=== PATIENT | female | born 1935 | race African-American/Black ===

== ENCOUNTER 2020-07-25 13:56 | Observation (INO) ==
[2020-07-25 14:31] LABS: Basophils % 0.4 % (0.0-0.8); Eosinophils % 0.4 % (0.00-10.9); Hematocrit 35.4 VOL% (35.7-47.0); Hemoglobin 11.4 GM/DL (12.0-16.0); Immature Granulocytes % 0.2 %; Immature Granulocytes Absolute 0.02 #; Lymphocytes # 1.4 10*3/uL (1.4-4.0); Lymphocytes % 17.9 % (21.3-54.2); Mean Corpuscular HGB Conc 32.2 GM/DL (32-36); Mean Corpuscular Volume 90.1 FL (87-102); Monocytes % 5.9 % (1.7-12.7); Neutrophils % 75.2 % (38.7-73.9); Platelet Count 419 T/CUMM (130-400); Red Blood Count 3.93 MC/CUMM (3.8-5.5); Red Cell Distribution Width 14.2 % (9.3-17.3)
[2020-07-25 14:49] LABS: Albumin 3.5 G/DL (3.4-5.0); Bilirubin,Total 0.4 MG/DL (0.2-1.0); Calcium 9.5 MG/DL (8.5-10.1); Osmolality,Calculated 278.5 MOS/KG (273-304); Total Protein 7.6 G/DL (6.4-8.2)
[2020-07-25] MEDS ORDERED: ONDANSETRON 4 MG/2 ML VIAL IV PRN (15:15)
[2020-07-25] MEDS ORDERED: ACETAMINOPHEN 325 MG TABLET PO PRN (15:15)
[2020-07-25] MEDS ORDERED: MAGNESIUM SULF RIDER 2 GM/50 ML PREMIX IV ONE ×2 (18:08→20:00)
[2020-07-25] MEDS ORDERED: traZODone 50 MG TABLET PO PRN (18:09)
[2020-07-25] MEDS: DOCUSATE SODIUM 100 MG CAPSULE PO SCH (20:30)
[2020-07-25] MEDS ORDERED: INSULIN GLARGINE 100 UNIT/ML SUBCUT SCH (21:00)
[2020-07-26] MEDS ORDERED: metFORMIN 500 MG TABLET PO SCH (08:00)
[2020-07-26] MEDS ORDERED: POTASSIUM CHLORIDE 20 MEQ TABLET PO SCH (09:00)
[2020-07-26] MEDS ORDERED: sitaGLIPtin 100 MG TABLET PO SCH (09:00)
[2020-07-26] MEDS ORDERED: PANTOPRAZOLE 40 MG TABLET PO SCH (09:00)
[2020-07-26] MEDS ORDERED: hydroCHLOROthiazide 25 MG TABLET PO SCH (09:00)
[2020-07-26] MEDS ORDERED: ASPIRIN EC 81 MG TABLET PO SCH (09:00)
[2020-07-26] MEDS ORDERED: amLODIPine 5 MG TABLET PO SCH (09:00)
[2020-07-26] MEDS: DOCUSATE SODIUM 100 MG CAPSULE PO SCH (09:21)
[2020-07-26 11:57] VITALS: BP 110/51
== END 2020-07-26 16:13 | disposition home health service (06) ==
LOC: N.ED 13:56 → N.EDINP 13:56 → N.TELEN 17:22
PROVIDERS: ADMIT Internal Medicine; ATTEND Internal Medicine

== ENCOUNTER 2021-02-11 10:02 | Inpatient (IN) ==
[2021-02-11 13:16] LABS: Basophils % 0.2 % (0.0-0.8); Eosinophils % 0.7 % (0.00-10.9); Hematocrit 31.9 VOL% (35.7-47.0); Immature Granulocytes % 0.3 %; Immature Granulocytes Absolute 0.02 #; Lymphocytes # 1.2 10*3/uL (1.4-4.0); Mean Corpuscular HGB Conc 31.3 GM/DL (32-36); Mean Corpuscular Volume 86.9 FL (87-102); Mean Platelet Volume 10.5 FL (9.6-12.0); Monocytes % 8.9 % (1.7-12.7); Neutrophils % 69.9 % (38.7-73.9); Platelet Count 512 T/CUMM (130-400); Red Blood Count 3.67 MC/CUMM (3.8-5.5); Red Cell Distribution Width 14.6 % (9.3-17.3); White Blood Count 6.1 T/CUMM (4-12)
[2021-02-11 13:40] LABS: Alanine Aminotransferase 23 U/L (13-56); Albumin 2.5 G/DL (3.4-5.0); Alkaline Phosphatase 63 U/L (45-117); Aspartate Amino Transferase 37 U/L (0-37); Bilirubin,Total < 0.39 MG/DL (0.20-1.00); Blood Urea Nitrogen 12 MG/DL (7-18); Calcium 9.4 MG/DL (8.5-10.1); Carbon Dioxide 30 MMOL/L (21-32); Estimated Glom Filtration Rate 110 ML/MIN; Glucose 98 MG/DL (74-106); Potassium 3.3 MMOL/L (3.5-5.1); Sodium 136 MMOL/L (136-145); Total Protein 7.2 G/DL (6.4-8.2)
[2021-02-11] MEDS ORDERED: GLUCAGON 1 MG VIAL IM PRN (14:15)
[2021-02-11] MEDS ORDERED: ONDANSETRON 4 MG/2 ML VIAL IV PRN (14:15)
[2021-02-11] MEDS ORDERED: DEXTROSE 50% 25 GM/50 ML SYRINGE IV PRN (14:32)
[2021-02-11] MEDS: CLINDAMYCIN INJ 600 MG/50 ML PREMIX IV SCH ×2 (15:03→23:58)
[2021-02-11] MEDS: INSULIN LISPRO 100 UNIT/ML SUBCUT SCH ×2 (17:19→23:50)
[2021-02-11] MEDS: ACETAMINOPHEN 325 MG TABLET PO PRN (21:40)
[2021-02-12] MEDS: INSULIN LISPRO 100 UNIT/ML SUBCUT SCH ×4 (07:50→20:47)
[2021-02-12 08:39] LABS: Basophils % 0.2 % (0.0-0.8); Eosinophils % 0.5 % (0.00-10.9); Hematocrit 30.8 VOL% (35.7-47.0); Hemoglobin 9.7 GM/DL (12.0-16.0); Immature Granulocytes % 0.3 %; Immature Granulocytes Absolute 0.02 #; Lymphocytes # 1.2 10*3/uL (1.4-4.0); Mean Corpuscular HGB Conc 31.5 GM/DL (32-36); Mean Corpuscular Volume 86.8 FL (87-102); Mean Platelet Volume 10.6 FL (9.6-12.0); Monocytes % 8.8 % (1.7-12.7); Neutrophils % 70.2 % (38.7-73.9); Platelet Count 483 T/CUMM (130-400); Red Blood Count 3.55 MC/CUMM (3.8-5.5); Red Cell Distribution Width 14.6 % (9.3-17.3)
[2021-02-12] MEDS: CLINDAMYCIN INJ 600 MG/50 ML PREMIX IV SCH ×3 (08:45→23:55)
[2021-02-12] MEDS: PANTOPRAZOLE 40 MG TABLET PO SCH (08:45)
[2021-02-12 09:04] LABS: Albumin 2.4 G/DL (3.4-5.0); Bilirubin,Total 0.7 MG/DL (0.20-1.00); Calcium 9.3 MG/DL (8.5-10.1); Osmolality,Calculated 270.8 MOS/KG (273-304); Potassium 3.7 MMOL/L (3.5-5.1)
[2021-02-12 19:45] LABS: Amorphous Crystals,Urine Occasional /HPF (Few); Bilirubin,Urine Negative (Negative); Blood, Urine Negative (Negative); Glucose,Urine (UA) Negative (Negative); Ketones,Urine Negative (Negative); Mucus,Urine Occasional /LPF (Occasional); Nitrite,Urine Negative (Negative); Protein,Urine Negative; Squamous Epithelial Cell,Urine Occasional /HPF (0-10); Urine Appearance CLEAR (Clear); Urine Color Yellow (Yellow); Urine Specific Gravity 1.016 (1.001-1.035)
[2021-02-12] MEDS: POTASSIUM CHLORIDE 10 MEQ TABLET PO SCH (20:50)
[2021-02-12] MEDS: BACLOFEN 10 MG TABLET PO SCH (20:50)
[2021-02-13] MEDS: traZODone 50 MG TABLET PO PRN (00:04)
[2021-02-13] MEDS: CLINDAMYCIN INJ 600 MG/50 ML PREMIX IV SCH ×3 (06:20→22:25)
[2021-02-13 06:30] LABS: Basophils % 0.1 % (0.0-0.8); Eosinophils # 0.1 10*3/uL (0.0-0.87); Eosinophils % 0.7 % (0.00-10.9); Hematocrit 29.7 VOL% (35.7-47.0); Hemoglobin 9.4 GM/DL (12.0-16.0); Immature Granulocytes % 0.7 %; Immature Granulocytes Absolute 0.05 #; Lymphocytes # 1.9 10*3/uL (1.4-4.0); Lymphocytes % 25.9 % (21.3-54.2); Mean Corpuscular HGB Conc 31.6 GM/DL (32-36); Mean Corpuscular Volume 85.3 FL (87-102); Mean Platelet Volume 10.5 FL (9.6-12.0); Monocytes % 11.1 % (1.7-12.7); Neutrophils % 61.5 % (38.7-73.9); Platelet Count 480 T/CUMM (130-400); Red Blood Count 3.48 MC/CUMM (3.8-5.5); Red Cell Distribution Width 14.6 % (9.3-17.3); White Blood Count 7.3 T/CUMM (4-12)
[2021-02-13 07:00] LABS: Calcium 8.7 MG/DL (8.5-10.1); Osmolality,Calculated 267.1 MOS/KG (273-304); Potassium 3.5 MMOL/L (3.5-5.1)
[2021-02-13] MEDS: INSULIN LISPRO 100 UNIT/ML SUBCUT SCH ×4 (07:41→21:01)
[2021-02-13] MEDS ORDERED: LIDOCAINE 1% 50 ML VIAL ONE (10:17)
[2021-02-13] MEDS ORDERED: fentaNYL 100 MCG/2 ML VIAL ONE (10:47)
[2021-02-13] MEDS ORDERED: TUBERCULIN SKIN TEST 0.1 ML SYRINGE INTRADERM ONE (11:00)
[2021-02-13] MEDS ORDERED: LACTATED RINGERS 1,000 ML IV SCH (11:00)
[2021-02-13] MEDS: hydroCHLOROthiazide 25 MG TABLET PO SCH (11:00)
[2021-02-13] MEDS: ASPIRIN EC 81 MG TABLET PO SCH (11:00)
[2021-02-13] MEDS: BACLOFEN 10 MG TABLET PO SCH ×3 (11:01→21:01)
[2021-02-13] MEDS: PANTOPRAZOLE 40 MG TABLET PO SCH (11:01)
[2021-02-13] MEDS: amLODIPine 10 MG TABLET PO SCH (11:01)
[2021-02-13] MEDS: POTASSIUM CHLORIDE 10 MEQ TABLET PO SCH ×2 (11:01→21:01)
[2021-02-13] MEDS ORDERED: LIDOCAINE 2% 5 ML VIAL ONE (11:08)
[2021-02-13] MEDS ORDERED: PHENYLEPHRINE 1 MG/10 ML SYRINGE IV ONE (11:08)
[2021-02-13] MEDS ORDERED: ETOMIDATE 40 MG/20 ML VIAL IV ONE (11:08)
[2021-02-13] MEDS ORDERED: ONDANSETRON 4 MG/2 ML VIAL ONE (11:08)
[2021-02-13] MEDS ORDERED: propofoL 200 MG/20 ML VIAL IV ONE (11:08)
[2021-02-13] MEDS ORDERED: SEVOFLURANE 1 UNIT/15 MINUTE INH ONE (11:08)
[2021-02-13] MEDS ORDERED: DEXTROSE 50% 25 GM/50 ML VIAL IV PRN (12:16)
[2021-02-13] MEDS ORDERED: GLUCAGON 1 MG VIAL IM PRN (12:16)
[2021-02-13] MEDS: SODIUM CHLORIDE 0.9% 1,000 ML IV SCH ×3 (17:17→23:01)
[2021-02-13] MEDS ORDERED: SODIUM CHLORIDE 0.9% 1,000 ML IV SCH (21:00)
[2021-02-14 05:55] LABS: Basophils % 0.1 % (0.0-0.8); Hemoglobin 8.8 GM/DL (12.0-16.0); Immature Granulocytes % 0.5 %; Immature Granulocytes Absolute 0.08 #; Lymphocytes # 0.7 10*3/uL (1.4-4.0); Lymphocytes % 4.8 % (21.3-54.2); Mean Corpuscular HGB Conc 31.4 GM/DL (32-36); Mean Corpuscular Volume 86.7 FL (87-102); Mean Platelet Volume 10.3 FL (9.6-12.0); Monocytes % 3.8 % (1.7-12.7); Neutrophils % 90.8 % (38.7-73.9); Platelet Count 402 T/CUMM (130-400); Red Blood Count 3.23 MC/CUMM (3.8-5.5); Red Cell Distribution Width 14.6 % (9.3-17.3); White Blood Count 14.7 T/CUMM (4-12)
[2021-02-14 06:17] LABS: Calcium 8.6 MG/DL (8.5-10.1); Osmolality,Calculated 270.8 MOS/KG (273-304); Potassium 3.2 MMOL/L (3.5-5.1)
[2021-02-14] MEDS: CLINDAMYCIN INJ 600 MG/50 ML PREMIX IV SCH ×3 (06:18→22:39)
[2021-02-14 06:45] LABS: Band Neutrophils 3 % (0-10); Lymphocytes 1 % (20-55); Platelet Estimate Increased; Segmented Neutrophils 94 % (50-85); Total Cells Counted 100
[2021-02-14] MEDS: INSULIN LISPRO 100 UNIT/ML SUBCUT SCH ×4 (08:33→20:34)
[2021-02-14] MEDS: amLODIPine 10 MG TABLET PO SCH (09:08)
[2021-02-14] MEDS: ASPIRIN EC 81 MG TABLET PO SCH (09:08)
[2021-02-14] MEDS: PANTOPRAZOLE 40 MG TABLET PO SCH (09:08)
[2021-02-14] MEDS: POTASSIUM CHLORIDE 10 MEQ TABLET PO SCH ×2 (09:08→20:36)
[2021-02-14] MEDS: BACLOFEN 10 MG TABLET PO SCH ×3 (09:08→20:36)
[2021-02-14] MEDS: hydroCHLOROthiazide 25 MG TABLET PO SCH (09:08)
[2021-02-14] MEDS: SODIUM CHLORIDE 0.9% 1,000 ML IV SCH ×2 (09:09→20:44)
[2021-02-14] MEDS ORDERED: POTASSIUM CHLORIDE 20 MEQ TABLET PO ONE (11:00)
[2021-02-14] MEDS: traZODone 50 MG TABLET PO PRN (20:36)
[2021-02-15] MEDS: SODIUM CHLORIDE 0.9% 1,000 ML IV SCH ×3 (04:50→16:18)
[2021-02-15 05:39] LABS: Basophils % 0.1 % (0.0-0.8); Eosinophils # 0.1 10*3/uL (0.0-0.87); Eosinophils % 0.6 % (0.00-10.9); Hemoglobin 8.9 GM/DL (12.0-16.0); Immature Granulocytes % 0.6 %; Immature Granulocytes Absolute 0.05 #; Lymphocytes # 1.5 10*3/uL (1.4-4.0); Lymphocytes % 18.3 % (21.3-54.2); Mean Corpuscular HGB Conc 31.8 GM/DL (32-36); Mean Corpuscular Volume 85.4 FL (87-102); Mean Platelet Volume 10.1 FL (9.6-12.0); Monocytes % 8.6 % (1.7-12.7); Neutrophils % 71.8 % (38.7-73.9); Platelet Count 399 T/CUMM (130-400); Red Blood Count 3.28 MC/CUMM (3.8-5.5); Red Cell Distribution Width 14.7 % (9.3-17.3)
[2021-02-15 06:03] LABS: Calcium 8.6 MG/DL (8.5-10.1); Potassium 3.4 MMOL/L (3.5-5.1)
[2021-02-15 06:05] LABS: Band Neutrophils 6 % (0-10); Lymphocytes 20 % (20-55); Macrocytosis 1+; Platelet Estimate Normal; Segmented Neutrophils 69 % (50-85); Total Cells Counted 100
[2021-02-15 06:06] LABS: Anisocytosis Slight
[2021-02-15] MEDS: CLINDAMYCIN INJ 600 MG/50 ML PREMIX IV SCH ×3 (06:08→22:14)
[2021-02-15] MEDS: INSULIN LISPRO 100 UNIT/ML SUBCUT SCH ×4 (07:35→20:46)
[2021-02-15] MEDS: amLODIPine 10 MG TABLET PO SCH (10:28)
[2021-02-15] MEDS: BACLOFEN 10 MG TABLET PO SCH ×3 (10:28→20:46)
[2021-02-15] MEDS: POTASSIUM CHLORIDE 10 MEQ TABLET PO SCH ×2 (10:28→20:46)
[2021-02-15] MEDS: ASPIRIN EC 81 MG TABLET PO SCH (10:28)
[2021-02-15] MEDS: hydroCHLOROthiazide 25 MG TABLET PO SCH (10:28)
[2021-02-15] MEDS: PANTOPRAZOLE 40 MG TABLET PO SCH (10:28)
[2021-02-15] MEDS ORDERED: BISACODYL 10 MG SUPP RECTAL PRN (12:42)
[2021-02-15] MEDS: traZODone 50 MG TABLET PO PRN (20:46)
[2021-02-16] MEDS: SODIUM CHLORIDE 0.9% 1,000 ML IV SCH ×3 (01:21→18:27)
[2021-02-16 06:03] LABS: Basophils % 0.3 % (0.0-0.8); Eosinophils % 0.6 % (0.00-10.9); Hematocrit 27.8 VOL% (35.7-47.0); Hemoglobin 8.9 GM/DL (12.0-16.0); Immature Granulocytes % 0.5 %; Immature Granulocytes Absolute 0.03 #; Lymphocytes # 1.5 10*3/uL (1.4-4.0); Lymphocytes % 21.9 % (21.3-54.2); Mean Corpuscular Volume 84.8 FL (87-102); Mean Platelet Volume 9.7 FL (9.6-12.0); Neutrophils % 65.7 % (38.7-73.9); Platelet Count 421 T/CUMM (130-400); Red Blood Count 3.28 MC/CUMM (3.8-5.5); Red Cell Distribution Width 14.5 % (9.3-17.3); White Blood Count 6.6 T/CUMM (4-12)
[2021-02-16 06:24] LABS: Alanine Aminotransferase 21 U/L (13-56); Albumin 1.9 G/DL (3.4-5.0); Alkaline Phosphatase 75 U/L (45-117); Aspartate Amino Transferase 25 U/L (0-37); Bilirubin,Total < 0.39 MG/DL (0.20-1.00); Blood Urea Nitrogen 3 MG/DL (7-18); Calcium 8.5 MG/DL (8.5-10.1); Carbon Dioxide 24 MMOL/L (21-32); Estimated Glom Filtration Rate 110 ML/MIN; Glucose 101 MG/DL (74-106); Potassium 3.1 MMOL/L (3.5-5.1); Sodium 136 MMOL/L (136-145); Total Protein 6.4 G/DL (6.4-8.2)
[2021-02-16 06:39] LABS: Anisocytosis 1+; Band Neutrophils 1 % (0-10); Eosinophils 1 % (0-10); Lymphocytes 25 % (20-55); Platelet Estimate Normal; Segmented Neutrophils 61 % (50-85); Total Cells Counted 100
[2021-02-16 06:40] LABS: Hypochromasia Slight; Macrocytosis Slight
[2021-02-16] MEDS: CLINDAMYCIN INJ 600 MG/50 ML PREMIX IV SCH ×3 (09:32→23:00)
[2021-02-16] MEDS: PANTOPRAZOLE 40 MG TABLET PO SCH (09:32)
[2021-02-16] MEDS: INSULIN LISPRO 100 UNIT/ML SUBCUT SCH ×4 (09:33→20:14)
[2021-02-16] MEDS: BACLOFEN 10 MG TABLET PO SCH ×3 (09:33→20:08)
[2021-02-16] MEDS: ASPIRIN EC 81 MG TABLET PO SCH (09:33)
[2021-02-16] MEDS: hydroCHLOROthiazide 25 MG TABLET PO SCH (09:33)
[2021-02-16] MEDS: amLODIPine 10 MG TABLET PO SCH (09:33)
[2021-02-16] MEDS: POTASSIUM CHLORIDE 10 MEQ TABLET PO SCH ×2 (09:33→20:08)
[2021-02-16] MEDS ORDERED: POTASSIUM CHLORIDE 20 MEQ TABLET PO PRN (10:56)
[2021-02-16] MEDS ORDERED: MAGNESIUM SULF RIDER 2 GM/50 ML PREMIX IV PRN (10:56)
[2021-02-16] MEDS ORDERED: MAGNESIUM SULF RIDER 4 GM/100 ML PREMIX IV PRN (10:56)
[2021-02-16] MEDS: traZODone 50 MG TABLET PO PRN (20:08)
[2021-02-17] MEDS: SODIUM CHLORIDE 0.9% 1,000 ML IV SCH ×2 (04:46→11:51)
[2021-02-17] MEDS: INSULIN LISPRO 100 UNIT/ML SUBCUT SCH ×4 (07:44→20:24)
[2021-02-17] MEDS: CLINDAMYCIN INJ 600 MG/50 ML PREMIX IV SCH (08:06)
[2021-02-17] MEDS: POTASSIUM CHLORIDE 10 MEQ TABLET PO SCH ×2 (08:08→20:24)
[2021-02-17] MEDS: ASPIRIN EC 81 MG TABLET PO SCH (08:08)
[2021-02-17] MEDS: PANTOPRAZOLE 40 MG TABLET PO SCH (08:08)
[2021-02-17] MEDS: amLODIPine 10 MG TABLET PO SCH (08:08)
[2021-02-17] MEDS: BACLOFEN 10 MG TABLET PO SCH ×3 (08:08→20:24)
[2021-02-17] MEDS: hydroCHLOROthiazide 25 MG TABLET PO SCH (08:08)
[2021-02-17] MEDS ORDERED: LIDOCAINE 1% 50 ML VIAL ONE (08:42)
[2021-02-17] MEDS ORDERED: LIDOCAINE 2% 5 ML VIAL ONE (08:56)
[2021-02-17] MEDS ORDERED: SEVOFLURANE 1 UNIT/15 MINUTE INH ONE (08:56)
[2021-02-17] MEDS ORDERED: fentaNYL 100 MCG/2 ML VIAL ONE (08:56)
[2021-02-17] MEDS ORDERED: ETOMIDATE 40 MG/20 ML VIAL IV ONE (08:56)
[2021-02-17] MEDS ORDERED: propofoL 200 MG/20 ML VIAL IV ONE (08:56)
[2021-02-17] MEDS ORDERED: PHENYLEPHRINE 1 MG/10 ML SYRINGE IV ONE ×2 (08:56→10:06)
[2021-02-17] MEDS ORDERED: LACTATED RINGERS 1,000 ML IV SCH (10:00)
[2021-02-17] MEDS: PIPERACILLIN/TAZOBACTAM 3,375 MG in SODIUM CHLORIDE 0.9% 100 ML IV SCH ×2 (11:51→19:14)
[2021-02-17] MEDS: POTASSIUM CHLORIDE RIDER 10 MEQ/100 ML PREMIX IV PRN ×4 (16:58→22:52)
[2021-02-18] MEDS: SODIUM CHLORIDE 0.9% 1,000 ML IV SCH ×6 (01:00→23:20)
[2021-02-18] MEDS: PIPERACILLIN/TAZOBACTAM 3,375 MG in SODIUM CHLORIDE 0.9% 100 ML IV SCH ×3 (02:26→18:35)
[2021-02-18 06:42] LABS: Basophils # 0.1 10*3/uL (0.0-0.2); Basophils % 0.6 % (0.0-0.8); Eosinophils # 0.1 10*3/uL (0.0-0.87); Eosinophils % 0.7 % (0.00-10.9); Hematocrit 27.9 VOL% (35.7-47.0); Hemoglobin 8.9 GM/DL (12.0-16.0); Immature Granulocytes % 0.7 %; Immature Granulocytes Absolute 0.07 #; Lymphocytes # 2.3 10*3/uL (1.4-4.0); Mean Corpuscular HGB Conc 31.9 GM/DL (32-36); Mean Corpuscular Volume 85.1 FL (87-102); Mean Platelet Volume 9.3 FL (9.6-12.0); Monocytes % 9.7 % (1.7-12.7); Neutrophils % 65.3 % (38.7-73.9); Platelet Count 499 T/CUMM (130-400); Red Blood Count 3.28 MC/CUMM (3.8-5.5); Red Cell Distribution Width 14.5 % (9.3-17.3); White Blood Count 9.9 T/CUMM (4-12)
[2021-02-18 07:07] LABS: Calcium 8.4 MG/DL (8.5-10.1); Potassium 3.7 MMOL/L (3.5-5.1)
[2021-02-18] MEDS: POTASSIUM CHLORIDE RIDER 10 MEQ/100 ML PREMIX IV PRN ×2 (07:18→10:06)
[2021-02-18] MEDS: INSULIN LISPRO 100 UNIT/ML SUBCUT SCH ×4 (08:28→22:47)
[2021-02-18] MEDS: hydroCHLOROthiazide 25 MG TABLET PO SCH (09:24)
[2021-02-18] MEDS: ASPIRIN EC 81 MG TABLET PO SCH (09:24)
[2021-02-18] MEDS: BACLOFEN 10 MG TABLET PO SCH ×3 (09:24→21:26)
[2021-02-18] MEDS: POTASSIUM CHLORIDE 10 MEQ TABLET PO SCH ×2 (09:24→21:26)
[2021-02-18] MEDS: PANTOPRAZOLE 40 MG TABLET PO SCH (09:25)
[2021-02-18] MEDS: amLODIPine 10 MG TABLET PO SCH (09:25)
[2021-02-18] MEDS ORDERED: LACTATED RINGERS 1,000 ML IV SCH (11:30)
[2021-02-18] MEDS ORDERED: LIDOCAINE 2% 5 ML VIAL ONE (11:44)
[2021-02-18] MEDS ORDERED: EPINEPHrine 1 MG/ML VIAL ONE (11:44)
[2021-02-18] MEDS ORDERED: fentaNYL 2 MCG/ROPIV 0.2% EPID 100 ML EPIDURAL SCH (12:00)
[2021-02-18] MEDS ORDERED: PHENYLEPHRINE 10 MG/1 ML VIAL IV ONE (12:16)
[2021-02-18] MEDS ORDERED: PHENYLEPHRINE 1 MG/10 ML SYRINGE IV ONE (13:08)
[2021-02-18] MEDS: HYDROmorphone 2 MG/1 ML VIAL IV PRN (21:27)
[2021-02-19] MEDS: PIPERACILLIN/TAZOBACTAM 3,375 MG in SODIUM CHLORIDE 0.9% 100 ML IV SCH ×3 (02:15→18:38)
[2021-02-19 05:21] LABS: Basophils % 0.4 % (0.0-0.8); Eosinophils % 0.2 % (0.00-10.9); Hemoglobin 8.6 GM/DL (12.0-16.0); Immature Granulocytes % 0.8 %; Immature Granulocytes Absolute 0.07 #; Lymphocytes # 1.5 10*3/uL (1.4-4.0); Lymphocytes % 17.6 % (21.3-54.2); Mean Corpuscular HGB Conc 31.9 GM/DL (32-36); Mean Corpuscular Volume 84.6 FL (87-102); Mean Platelet Volume 8.9 FL (9.6-12.0); Monocytes % 8.5 % (1.7-12.7); Neutrophils % 72.5 % (38.7-73.9); Platelet Count 486 T/CUMM (130-400); Red Blood Count 3.19 MC/CUMM (3.8-5.5); Red Cell Distribution Width 14.7 % (9.3-17.3); White Blood Count 8.6 T/CUMM (4-12)
[2021-02-19 05:44] LABS: Hypochromasia Slight; Lymphocytes 11 % (20-55); Microcytosis Slight; Platelet Estimate Increased; Segmented Neutrophils 85 % (50-85); Total Cells Counted 100
[2021-02-19 05:48] LABS: Calcium 7.8 MG/DL (8.5-10.1); Osmolality,Calculated 272.7 MOS/KG (273-304); Potassium 3.3 MMOL/L (3.5-5.1)
[2021-02-19] MEDS: POTASSIUM CHLORIDE RIDER 10 MEQ/100 ML PREMIX IV PRN (06:32)
[2021-02-19] MEDS: INSULIN LISPRO 100 UNIT/ML SUBCUT SCH ×4 (07:55→21:03)
[2021-02-19] MEDS ORDERED: fentaNYL 2 MCG/ROPIV 0.2% EPID 100 ML EPIDURAL SCH (08:00)
[2021-02-19] MEDS: POTASSIUM CHLORIDE 10 MEQ TABLET PO SCH ×2 (08:39→21:41)
[2021-02-19] MEDS: ACETAMINOPHEN 325 MG TABLET PO PRN ×2 (08:40→21:41)
[2021-02-19] MEDS: PANTOPRAZOLE 40 MG TABLET PO SCH (08:40)
[2021-02-19] MEDS: POTASSIUM CHLORIDE RIDER 10 MEQ/100 ML PREMIX IV SCH ×3 (08:50→12:09)
[2021-02-19] MEDS: BACLOFEN 10 MG TABLET PO SCH ×3 (09:27→21:40)
[2021-02-19] MEDS: hydroCHLOROthiazide 25 MG TABLET PO SCH (09:27)
[2021-02-19] MEDS: amLODIPine 10 MG TABLET PO SCH (09:28)
[2021-02-19] MEDS: ASPIRIN EC 81 MG TABLET PO SCH (09:30)
[2021-02-19] MEDS ORDERED: ePHEDrine 50 MG/ML VIAL IM ONE ×2 (10:00→10:30)
[2021-02-19] MEDS ORDERED: ALBUMIN 5% 12.5 GM/250 ML VIAL IV ONE (10:00)
[2021-02-19] MEDS: SODIUM CHLORIDE 0.9% 1,000 ML IV SCH ×2 (12:48→17:06)
[2021-02-19] MEDS: HYDROmorphone 2 MG/1 ML VIAL IV PRN (14:39)
[2021-02-19] MEDS: traZODone 50 MG TABLET PO PRN (21:41)
[2021-02-20] MEDS: PIPERACILLIN/TAZOBACTAM 3,375 MG in SODIUM CHLORIDE 0.9% 100 ML IV SCH ×3 (02:12→17:58)
[2021-02-20] MEDS: SODIUM CHLORIDE 0.9% 1,000 ML IV SCH (03:00)
[2021-02-20 05:28] LABS: Basophils % 0.5 % (0.0-0.8); Eosinophils # 0.1 10*3/uL (0.0-0.87); Eosinophils % 0.7 % (0.00-10.9); Hematocrit 23.5 VOL% (35.7-47.0); Hemoglobin 7.6 GM/DL (12.0-16.0); Immature Granulocytes % 0.8 %; Immature Granulocytes Absolute 0.07 #; Lymphocytes # 1.8 10*3/uL (1.4-4.0); Lymphocytes % 21.5 % (21.3-54.2); Mean Corpuscular HGB Conc 32.3 GM/DL (32-36); Mean Corpuscular Volume 85.1 FL (87-102); Mean Platelet Volume 8.9 FL (9.6-12.0); Monocytes % 9.2 % (1.7-12.7); Neutrophils % 67.3 % (38.7-73.9); Platelet Count 434 T/CUMM (130-400); Red Blood Count 2.76 MC/CUMM (3.8-5.5); Red Cell Distribution Width 14.8 % (9.3-17.3); White Blood Count 8.3 T/CUMM (4-12)
[2021-02-20 05:52] LABS: Hypochromasia 2+; Lymphocytes 19 % (20-55); Microcytosis 1+; Segmented Neutrophils 73 % (50-85); Total Cells Counted 100
[2021-02-20 05:53] LABS: Platelet Estimate Increased
[2021-02-20 05:57] LABS: Albumin 1.8 G/DL (3.4-5.0); Bilirubin,Total 1.2 MG/DL (0.20-1.00); Calcium 7.8 MG/DL (8.5-10.1); Osmolality,Calculated 276.3 MOS/KG (273-304); Potassium 3.1 MMOL/L (3.5-5.1); Thyroid Stimulating Hormone 6.59 uIU/ml (0.358-3.74); Total Protein 5.9 G/DL (6.4-8.2)
[2021-02-20] MEDS: POTASSIUM CHLORIDE RIDER 10 MEQ/100 ML PREMIX IV PRN (06:22)
[2021-02-20] MEDS ORDERED: POTASSIUM CHLORIDE INJ 20 MEQ in SODIUM CHLORIDE 0.9% 1,000 ML IV SCH (08:00)
[2021-02-20] MEDS: INSULIN LISPRO 100 UNIT/ML SUBCUT SCH ×4 (08:02→20:49)
[2021-02-20] MEDS: PANTOPRAZOLE 40 MG TABLET PO SCH (09:58)
[2021-02-20] MEDS: POTASSIUM CHLORIDE 20 MEQ TABLET PO SCH ×2 (09:58→20:48)
[2021-02-20] MEDS: ASPIRIN EC 81 MG TABLET PO SCH (09:58)
[2021-02-20] MEDS: BACLOFEN 10 MG TABLET PO SCH ×3 (09:58→20:48)
[2021-02-20] MEDS: SODIUM CHLOR 0.9% KCL 20 MEQ 20 MEQ/1,000 ML BAG IV SCH (10:02)
[2021-02-20] MEDS: POTASSIUM CHLORIDE RIDER 10 MEQ/100 ML PREMIX IV SCH ×3 (10:02→13:32)
[2021-02-20] MEDS: amLODIPine 10 MG TABLET PO SCH (10:57)
[2021-02-20] MEDS: hydroCHLOROthiazide 25 MG TABLET PO SCH (10:57)
[2021-02-20] MEDS ORDERED: POTASSIUM CHLORIDE RIDER 10 MEQ/100 ML PREMIX IV SCH (14:00)
[2021-02-20] MEDS: HYDROmorphone 2 MG/1 ML VIAL IV PRN (23:15)
[2021-02-21] MEDS: SODIUM CHLOR 0.9% KCL 20 MEQ 20 MEQ/1,000 ML BAG IV SCH ×3 (00:43→19:58)
[2021-02-21] MEDS: PIPERACILLIN/TAZOBACTAM 3,375 MG in SODIUM CHLORIDE 0.9% 100 ML IV SCH ×3 (03:19→19:57)
[2021-02-21 06:03] LABS: Basophils % 0.6 % (0.0-0.8); Eosinophils # 0.1 10*3/uL (0.0-0.87); Eosinophils % 2.1 % (0.00-10.9); Hematocrit 21.3 VOL% (35.7-47.0); Hemoglobin 6.6 GM/DL (12.0-16.0); Immature Granulocytes % 0.4 %; Immature Granulocytes Absolute 0.02 #; Lymphocytes # 1.5 10*3/uL (1.4-4.0); Lymphocytes % 30.2 % (21.3-54.2); Mean Corpuscular Volume 85.9 FL (87-102); Mean Platelet Volume 9.4 FL (9.6-12.0); Monocytes % 10.6 % (1.7-12.7); Neutrophils % 56.1 % (38.7-73.9); Platelet Count 494 T/CUMM (130-400); Red Blood Count 2.48 MC/CUMM (3.8-5.5); White Blood Count 4.8 T/CUMM (4-12)
[2021-02-21 06:20] LABS: Albumin 1.6 G/DL (3.4-5.0); Bilirubin,Total 0.5 MG/DL (0.20-1.00); Calcium 7.8 MG/DL (8.5-10.1); Free T4 (Free Thyroxine) 0.89 NG/DL (0.76-1.46); Osmolality,Calculated 270.7 MOS/KG (273-304); Potassium 3.6 MMOL/L (3.5-5.1); Total Protein 5.5 G/DL (6.4-8.2)
[2021-02-21] MEDS: INSULIN LISPRO 100 UNIT/ML SUBCUT SCH ×4 (07:47→21:16)
[2021-02-21] MEDS ORDERED: SODIUM CHLORIDE 0.9% 1,000 ML IV PRN (09:04)
[2021-02-21] MEDS: PANTOPRAZOLE 40 MG TABLET PO SCH (09:36)
[2021-02-21] MEDS: POTASSIUM CHLORIDE 20 MEQ TABLET PO SCH ×3 (09:36→22:16)
[2021-02-21] MEDS: BACLOFEN 10 MG TABLET PO SCH ×3 (09:36→21:57)
[2021-02-21] MEDS: ASPIRIN EC 81 MG TABLET PO SCH (09:36)
[2021-02-21] MEDS ORDERED: GLUCAGON 1 MG VIAL IM PRN (09:43)
[2021-02-21] MEDS ORDERED: DEXTROSE 50% 25 GM/50 ML VIAL IV PRN (09:43)
[2021-02-21] MEDS: hydroCHLOROthiazide 25 MG TABLET PO SCH (10:44)
[2021-02-21] MEDS: amLODIPine 10 MG TABLET PO SCH (10:44)
[2021-02-21] MEDS ORDERED: FUROSEMIDE 40 MG/4 ML VIAL IV ONE (14:19)
[2021-02-21] MEDS: HYDROmorphone 2 MG/1 ML VIAL IV PRN ×2 (14:27→22:20)
[2021-02-22 05:05] LABS: Basophils % 0.8 % (0.0-0.8); Eosinophils # 0.1 10*3/uL (0.0-0.87); Hematocrit 31.4 VOL% (35.7-47.0); Immature Granulocytes % 0.8 %; Immature Granulocytes Absolute 0.04 #; Lymphocytes # 1.5 10*3/uL (1.4-4.0); Lymphocytes % 29.6 % (21.3-54.2); Mean Corpuscular HGB Conc 32.5 GM/DL (32-36); Mean Corpuscular Volume 86.7 FL (87-102); Mean Platelet Volume 9.1 FL (9.6-12.0); Monocytes % 10.4 % (1.7-12.7); Neutrophils % 56.4 % (38.7-73.9); Platelet Count 522 T/CUMM (130-400); Red Blood Count 3.62 MC/CUMM (3.8-5.5); Red Cell Distribution Width 15.5 % (9.3-17.3); White Blood Count 5.1 T/CUMM (4-12)
[2021-02-22] MEDS: PIPERACILLIN/TAZOBACTAM 3,375 MG in SODIUM CHLORIDE 0.9% 100 ML IV SCH ×3 (05:05→18:52)
[2021-02-22 05:06] LABS: Hemoglobin 10.2 GM/DL (12.0-16.0)
[2021-02-22] MEDS: HYDROmorphone 2 MG/1 ML VIAL IV PRN ×2 (06:02→22:20)
[2021-02-22] MEDS: SODIUM CHLOR 0.9% KCL 20 MEQ 20 MEQ/1,000 ML BAG IV SCH ×2 (08:19→15:39)
[2021-02-22] MEDS: POTASSIUM CHLORIDE 20 MEQ TABLET PO SCH ×2 (09:38→20:55)
[2021-02-22] MEDS: hydroCHLOROthiazide 25 MG TABLET PO SCH (09:39)
[2021-02-22] MEDS: amLODIPine 10 MG TABLET PO SCH (09:39)
[2021-02-22] MEDS: BACLOFEN 10 MG TABLET PO SCH ×3 (09:39→20:55)
[2021-02-22] MEDS: PANTOPRAZOLE 40 MG TABLET PO SCH (09:40)
[2021-02-22] MEDS: ASPIRIN EC 81 MG TABLET PO SCH (09:40)
[2021-02-22] MEDS: INSULIN LISPRO 100 UNIT/ML SUBCUT SCH ×4 (10:17→22:09)
[2021-02-22] MEDS: ACETAMINOPHEN 325 MG TABLET PO PRN (15:55)
[2021-02-23] MEDS: SODIUM CHLOR 0.9% KCL 20 MEQ 20 MEQ/1,000 ML BAG IV SCH ×2 (00:42→07:54)
[2021-02-23] MEDS: HYDROmorphone 2 MG/1 ML VIAL IV PRN (03:25)
[2021-02-23] MEDS: PIPERACILLIN/TAZOBACTAM 3,375 MG in SODIUM CHLORIDE 0.9% 100 ML IV SCH ×3 (03:30→21:49)
[2021-02-23 06:54] LABS: Basophils % 0.8 % (0.0-0.8); Eosinophils # 0.2 10*3/uL (0.0-0.87); Eosinophils % 3.1 % (0.00-10.9); Hematocrit 35.6 VOL% (35.7-47.0); Hemoglobin 11.5 GM/DL (12.0-16.0); Immature Granulocytes % 0.6 %; Immature Granulocytes Absolute 0.03 #; Lymphocytes # 1.7 10*3/uL (1.4-4.0); Lymphocytes % 35.2 % (21.3-54.2); Mean Corpuscular HGB Conc 32.3 GM/DL (32-36); Mean Corpuscular Volume 87.7 FL (87-102); Mean Platelet Volume 8.8 FL (9.6-12.0); Monocytes % 10.3 % (1.7-12.7); Platelet Count 630 T/CUMM (130-400); Red Blood Count 4.06 MC/CUMM (3.8-5.5); Red Cell Distribution Width 15.5 % (9.3-17.3); White Blood Count 4.8 T/CUMM (4-12)
[2021-02-23 07:12] LABS: Calcium 8.2 MG/DL (8.5-10.1); Osmolality,Calculated 276.3 MOS/KG (273-304); Potassium 3.2 MMOL/L (3.5-5.1)
[2021-02-23] MEDS: INSULIN LISPRO 100 UNIT/ML SUBCUT SCH ×4 (09:37→21:53)
[2021-02-23] MEDS: hydroCHLOROthiazide 25 MG TABLET PO SCH (09:38)
[2021-02-23] MEDS: POTASSIUM CHLORIDE 20 MEQ TABLET PO SCH ×2 (09:38→21:49)
[2021-02-23] MEDS: BACLOFEN 10 MG TABLET PO SCH ×3 (09:38→21:49)
[2021-02-23] MEDS: amLODIPine 10 MG TABLET PO SCH (09:38)
[2021-02-23] MEDS: PANTOPRAZOLE 40 MG TABLET PO SCH (09:38)
[2021-02-23] MEDS: ASPIRIN EC 81 MG TABLET PO SCH (09:38)
[2021-02-24] MEDS: PIPERACILLIN/TAZOBACTAM 3,375 MG in SODIUM CHLORIDE 0.9% 100 ML IV SCH ×2 (04:53→14:13)
[2021-02-24] MEDS: amLODIPine 10 MG TABLET PO SCH (09:56)
[2021-02-24] MEDS: BACLOFEN 10 MG TABLET PO SCH ×2 (09:56→14:46)
[2021-02-24] MEDS: hydroCHLOROthiazide 25 MG TABLET PO SCH (09:56)
[2021-02-24] MEDS: PANTOPRAZOLE 40 MG TABLET PO SCH (09:56)
[2021-02-24] MEDS: POTASSIUM CHLORIDE 20 MEQ TABLET PO SCH (09:57)
[2021-02-24] MEDS: ASPIRIN EC 81 MG TABLET PO SCH (09:57)
[2021-02-24] MEDS: INSULIN LISPRO 100 UNIT/ML SUBCUT SCH ×3 (10:01→16:30)
[2021-02-24] MEDS: ACETAMINOPHEN 325 MG TABLET PO PRN (14:46)
[2021-02-24 18:24] VITALS: BP 120/61
== END 2021-02-24 18:28 | DRG 239 ==
LOC: N.EDINP 10:02 → N.ED 10:02 → N.3E 16:27
PROVIDERS: ADMIT Internal Medicine; ATTEND Internal Medicine